=== PATIENT | male | born 1955 ===

== ENCOUNTER 2025-02-09 11:26 | Outpatient (AMB) | payer MEDICARE, SELFPAY ==
--- NOTE | 2025-02-09 11:34 | A.OFFVIS_ITS ---
Intake Visit Reasons: [employer]/[place] care for PVD Intake Note: New patient presents for PVD. No complaints. Accompanied by: Spouse Allergies No Known Allergies Allergy (Verified 02/09/25 11:35) Coding
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
--- OUTSIDE RECORDS SUMMARY | 2025-02-09 12:32 | XMS_ITS | Clinical Summary ---
Author Organization [facility] Address [address] [place] [address] Phone Care Team Providers Care Mail Handler Name Role Phone Eugenie Reyes MD Primary Care Provider [phone] Allergies No known active allergies Medications aspirin 81 mg EC tablet Take 1 tablet (81 mg total) by mouth 2 (two) times a day. Active cloNIDine (CATAPRES) 0.1 mg tablet Take 1 tablet (0.1 mg total) by mouth 2 (two) times a day. Active QUEtiapine (SEROquel) 50 mg tablet Take 1 tablet (50 mg total) by mouth at bedtime. Active atorvastatin (LIPITOR) 40 mg tablet Take 1 tablet (40 mg total) by mouth at bedtime. Active ondansetron (ZOFRAN) 4 mg tablet Take 1 tablet (4 mg total) by mouth every 8 (eight) hours if needed for nausea or vomiting. Active benzonatate (TESSALON) 100 mg capsule Take 1 capsule (100 mg total) by mouth 3 (three) times a day if needed for cough. Do not crush or chew. Active multivitamin tablet Take 1 tablet by mouth 1 (one) time each day. Active Medical History Medical History Date Comments TBI (traumatic brain injury) (CMS/[facility] V24, CMS/[facility] V28) Hypertension Social History Tobacco Use Types Packs/Day Years Used Date Smoking Tobacco: Every Day Cigarettes Smokeless Tobacco: Former Tobacco Cessation:Ready to Q uit: Not Asked; Counseling Given: Not Answered Alcohol Use Standard Drinks/Week Comments Never 0 (1 standard drink = 0.6 oz pur e alcohol) Sex and Gender Information Value Date Recorded Sex Assigned at Not on file Legal Sex Male 10:17 AM EST Gender Identity Not on file Sexual Orientation Not on file Obstetrics History Last Filed Vital Signs Vital Sign Reading Time Taken Comments Blood Pressure 128/84 10/23/2024 2:41 PM EDT Pulse 79 10/23/2024 2:41 PM EDT Temperature 38.1 C (100.6 F) 09/06/2024 2:36 PM EST Respiratory Rate 24 09/06/2024 2:36 PM EST Oxygen Saturation 96% 10/23/2024 2:41 PM EDT Inhaled Oxygen Concentration - - Weight 68.9 kg (152 lb) 10/23/2024 2:41 PM EDT Height 175.3 cm (5' 9 ) 10/23/2024 2:41 PM EDT Body Mass Index 22.45 10/23/2024 2:41 PM EDT Plan of Treatment Health Maintenance Due Date Last Done Comments Pneumococcal Vaccine: 50+ Years (1 of 2 - PCV) 1973 Zoster Vaccines (1 of 2) 2004 DTaP,Tdap,and Td Vaccines (2 - Td or Tdap) 07/26/2021 07/26/2011 COVID-19 Vaccine ( - 2023-2 5 season) 2024 Abdominal Aortic Aneurysm (AAA) Screen 09/06/2024 Cholesterol Screening (Lipid Panel) 09/06/2024 01/20/2018 Colorectal Cancer Screening: Colonoscopy 09/06/2024 Depression Screening 09/06/2024 Falls Risk Assessment 09/06/2024 Lung Cancer Screening (Low Dose CT) 09/06/2024 Medicare Annual Wellness Visit 09/06/2024 Social Influencers of Health Screening 09/06/2024 Influenza Vaccine (Season Ended) 2025 07/26/2011 Hypertension/CHF/CAD Annual BMP Blood Test 09/06/2025 09/06/2024, 11/28/2023 RSV Immunization Adult Patients (1 - 1-dose 75+ series) 2029 Hepatitis C Screening Completed 01/20/2018 HIB Vaccines Aged Out No longer eligi ble based on patient's age to complete this topic HPV Vaccines Aged Out No longer eligi ble based on patient's age to complete this topic Hepatitis A Vaccines Aged Out No long er eligible based on patient's age to complete this topic Hepatitis B Vaccines Aged Out No long er eligible based on patient's age to complete this topic IPV Vaccines Aged Out No longer eligi ble based on patient's age to complete this topic MMR Vaccines Aged Out No longer eligi ble based on patient's age to complete this topic Meningococcal ACWY Vaccine Aged Out N o longer eligible based on patient's age to complete this topic Meningococcal B Vaccine Aged Out No l onger eligible based on patient's age to complete this topic RSV Immunization Patients Under 20 months Aged Out No longer eligible b ased on patient's age to complete this topic Varicella Vaccines Aged Out No longer eligible based on patient's age to complete this topic Procedures Procedure Name Priority Date/Time Associated Diagnosis Comments COMPREHENSIVE METABOLIC PANEL STAT 09/06/2024 11:41 AM EST from Last 3 Months or Most Recently Relevant to Health Maintenance Results * (ABNORMAL) Comprehensive metabolic panel (09/06/2024 11:41 AM EST) Sodium 137 133 - 145 mmol/L LAB CHEMISTRY METHOD 09/06/2024 12:50 PM [facility] Potassium 4.6 3.5 - 5.5 mmol/L LAB CHEMISTRY METHOD 09/06/2024 12:50 PM [facility] Chloride 102 96 - 110 mmol/L LAB CHEMISTRY METHOD 09/06/2024 12:50 PM [facility] CO2 26 21 - 32 mmol/L LAB CHEMISTRY METHOD 09/06/2024 12:50 PM [facility] Anion Gap 9 3 - 11 LAB CHEMISTRY METHOD 09/06/2024 12:50 PM [facility] Glucose 121(H) 70 - 100 mg/dL LAB CHEMISTRY METHOD 09/06/2024 12:50 PM [facility] BUN 15 5 - 25 mg/dL LAB CHEMISTRY METHOD 09/06/2024 12:50 PM [facility] Creatinine 1.45(H) 0.70 - 1.30 mg/dL LAB CHEMISTRY METHOD 09/06/2024 12:50 PM [facility] eGFR 52(L) >=60 mL/min/1. 73m2 LAB CHEMISTRY METHOD 09/06/2024 12:50 PM [facility] Comment:Calculation based on the Chronic Kidney Disease Epidemiology Collaboration (CKD-EPI) equation refit without adjustment for race. BUN/Creatinine Ratio 10.3 LAB CHEMISTRY METHOD 09/06/2024 12:50 PM [facility] Calcium 9.9 8.5 - 10.5 mg/dL LAB CHEMISTRY METHOD 09/06/2024 12:50 PM [facility] AST (SGOT) 33 10 - 42 unit/L LAB CHEMISTRY METHOD 09/06/2024 12:50 PM [facility] ALT (SGPT) 57 10 - 60 unit/L LAB CHEMISTRY METHOD 09/06/2024 12:50 PM [facility] Alkaline Phosphatase 120 42 - 121 unit/L LAB CHEMISTRY METHOD 09/06/2024 12:50 PM [facility] Total Protein 8.6(H) 6.0 - 8.0 g/dL LAB CHEMISTRY METHOD 09/06/2024 12:50 PM [facility] Albumin 4.6 3.2 - 5.0 g/dL LAB CHEMISTRY METHOD 09/06/2024 12:50 PM [facility] Total Bilirubin 0.7 0.0 - 1.4 mg/dL LAB CHEMISTRY METHOD 09/06/2024 12:50 PM [facility] Blood Venous blood specimen / Unknown Venipuncture / Unknown 09/06/2024 11:41 AM EST 09/06/2024 12:11 PM EST Daquan Cevallos MD LAB BLOOD ORDERABLES Final Res ult [facility] [address] [place] [address], from Last 3 Months or Most Recently Relevant to Health Maintenance Insurance [employer] Care Teams Mail Handler Relationship Specialty Start Date End Date Eugenie Reyes MD [address] [place] [address] PCP - General Family Medicine 10/23/24
== END 2025-02-09 12:05 | disposition home or self-care (01) ==
LOC: HO.HVS 11:29
PROVIDERS: Visit Provider Surgery Vascular Surgery
DX: I73.9 Peripheral vascular disease, unspecified (principal)
CPT/HCPCS: 99204; G2211

== ENCOUNTER → 2025-02-09 11:26 | Outpatient (BNVA) | payer MEDICARE, SELFPAY | PROVIDERS: Visit Provider Surgery Vascular Surgery | DX: I73.9 Peripheral vascular disease, unspecified (principal) | CPT/HCPCS: 99202 ==